=== PATIENT | female | born 1975 | race Caucasian/White ===

== ENCOUNTER 2016-10-25 13:44 | Emergency (ER) | payer BC ==
[~2016-10-25] VITALS: Ht 162.6 cm; Wt 70.0 kg
[~2016-10-25 13:44] MED LIST: ALBUAER3 INH; DIAZ5TAB PO; HYDR-755 PO
[2016-10-25 13:51] VITALS: BP 116/80; PULSE 112; RESP 20; TEMP 99.9; O2SAT 99
[2016-10-25] MEDS ORDERED: SODIUM CHLOR 0.9% 1000 ML INJ 1,000 ML IV SCH (14:48)
--- NOTE | 2016-10-25 14:54 | PD ---
Data Data Last Documented VS Vital Signs Date Time Temp Pulse Resp B/P Pulse Ox O2 Delivery O2 Flow Rate FiO2 10/25/16 18:00 90 17 110/78 99 Room Air 10/25/16 13:51 99.9 Orders Complete Blood Count With Diff (10/25/16 14:19) Comprehensive Metabolic Panel (10/25/16 14:19) Prothrombin Time / Inr (Pt) (10/25/16 14:19) Act Partial Throm Time (Ptt) (10/25/16 14:19) Blood Culture (10/25/16 14:19) C-Reactive Protein (Crp) (10/25/16 14:19) Magnesium (Mg) (10/25/16 14:19) Iv Access Insert/Monitor (10/25/16 14:19) Ct Knee W Iv Contrast (10/25/16 ) Lactic Acid (10/25/16 14:24) Morphine Inj (Morphine Inj) (10/25/16 15:00) Ondansetron Inj (Zofran Inj) (10/25/16 15:00) Sodium Chlor 0.9% 1000 Ml Inj (Ns 1000 M (10/25/16 14:48) Acetaminophen (Tylenol) (10/25/16 15:00) Iohexol 350 Inj (Omnipaque 350 Inj) (10/25/16 16:04) Radiology Film Requests (10/25/16 ) Sodium Chloride 0.9% Flush (Ns Flush) (10/25/16 18:00) Heparin Central Flush (Heparin Central F (10/25/16 18:00) Labs Laboratory Tests Test 10/25/16 10/25/16 14:30 14:35 White Blood Count 9.9 TH/MM3 Red Blood Count 4.27 MIL/MM3 Hemoglobin 12.4 GM/DL Hematocrit 36.8 % Mean Corpuscular Volume 86.2 FL Mean Corpuscular Hemoglobin 29.0 PG Mean Corpuscular Hemoglobin 33.6 % Concent Red Cell Distribution Width 13.2 % Platelet Count 191 TH/MM3 Mean Platelet Volume 7.9 FL Neutrophils (%) (Auto) 85.4 % Lymphocytes (%) (Auto) 7.4 % Monocytes (%) (Auto) 6.8 % Eosinophils (%) (Auto) 0.2 % Basophils (%) (Auto) 0.2 % Neutrophils # (Auto) 8.5 TH/MM3 Lymphocytes # (Auto) 0.7 TH/MM3 Monocytes # (Auto) 0.7 TH/MM3 Eosinophils # (Auto) 0.0 TH/MM3 Basophils # (Auto) 0.0 TH/MM3 CBC Comment DIFF FINAL Differential Comment Prothrombin Time 10.8 SEC Prothromb Time International 1.0 RATIO Ratio Activated Partial 39.8 SEC Thromboplast Time Sodium Level 136 MEQ/L Potassium Level 3.6 MEQ/L Chloride Level 101 MEQ/L Carbon Dioxide Level 27.3 MEQ/L Anion Gap 8 MEQ/L Blood Urea Nitrogen 11 MG/DL Creatinine 0.62 MG/DL Estimat Glomerular Filtration 107 ML/MIN Rate Random Glucose 101 MG/DL Calcium Level 9.6 MG/DL Magnesium Level 2.2 MG/DL Total Bilirubin 0.4 MG/DL Aspartate Amino Transf 12 U/L (AST/SGOT) Alanine Aminotransferase 22 U/L (ALT/SGPT) Alkaline Phosphatase 66 U/L C-Reactive Protein 15.30 MG/DL Total Protein 7.7 GM/DL Albumin 3.9 GM/DL Lactic Acid Level 0.8 mmol/L MDM Supervised Visit with [facility]ASS[facility]: Yes Narrative Course I, Dr. Holman], have reviewed the advance practice practitioner's documentation and am in agreement, met with the patient face to face, made the diagnosis, and the medical decision making was done by me. *My assessment and Findings: This is a 41-year-old female with a history of neutropenia and sepsis secondary to infection of hardware of the right lower extremity since emergency Department with pain and warmth to the right lower extremity. She has a history of osteosarcoma and the last time she had infected was probably 6 months ago when she was on chemotherapy at that time. Patient is not currently on chemotherapy. She relates a history of just completing her oral antibiotics approximately a month ago and this week she's noticed that the temperature of her leg is started to come up. She denies any systemic symptoms denies any abdominal pain chest pain nausea vomiting diarrhea. Physical exam does show some mild warmth to the right lower extremity, CT results were discussed with the patient as well as the covering orthopedist on- call who happens to be a PA. The PA that Scott Tang spoke with suggest that the CT findings cannot be used to rule in or rule out an infection of the hardware limits on clinical suspicion. We have discussed with the patient that our clinical suspicion is that she probably does have abutting infection. The patient relates a history of her physicians recommending that she have surgery to remove the hardware in the past but she did not want to do this. At this time the patient would like to start some by mouth antibiotics and then follow up with her orthopedic surgeon or . I discussed with her that at this point I think this is a reasonable course of action however she needs to follow-up very soon. Mr. Tang is ordering antibiotics for her she is not septic at this time. I have offered to transfer her to or however at this time given that we have orthopedic surgery on staff at our hospital she would likely have to pay for such transfer and she does not want to be admitted to our hospital neither. The last time she was admitted to our hospital she was ultimately transferred and she states that she is still paying off that develop. I discussed the risks of leaving at this point with her including worsening infection and need for further surgery and she is accepted those risks and would rather follow up with her orthopedic surgeon. We stressed again to her that she is to follow-up with her orthopedic surgeon as soon as possible. Scripts Rifampin 300 Mg [id number] Mg PO DAILY 14 Days Ref 0 Prov:Ronal Holman MD 10/25/16 Doxycycline Hyclate 100 Mg [id number] Mg PO BID 14 Days Ref 0 Prov:Ronal Holman MD 10/25/16 Ronal Holman MD October 25, 2016 14:54
[2016-10-25 15:00] LABS: AUTOMATED NEUTROPHIL # 8.5 TH/MM3 (1.8-7.7); BASOPHIL % 0.2 % (0.0-2.0); EOSINOPHIL % 0.2 % (0.0-4.0); HEMATOCRIT 36.8 % (35.0-46.0); HEMO FLAGS DIFF FINAL; LYMPH % 7.4 % (9.0-44.0); LYMPHOCYTE # 0.7 TH/MM3 (1.0-4.8); MEAN CELL VOLUME 86.2 FL (80.0-100.0); MEAN CORPUSCULAR HGB CONC 33.6 % (32.0-36.0); MONO % 6.8 % (0.0-8.0); NEUT % 85.4 % (16.0-70.0); PLATELET COUNT 191 TH/MM3 (150-450); RED BLOOD COUNT 4.27 MIL/MM3 (4.00-5.30); RED CELL DISTRIBUTION WIDTH 13.2 % (11.6-17.2); WHITE BLOOD COUNT 9.9 TH/MM3 (4.0-11.0)
[2016-10-25] MEDS ORDERED: ACETAMINOPHEN 325 MG TAB PO ONE (15:00)
[2016-10-25] MEDS ORDERED: MORPHINE SULFATE 4 MG/ML INJ IV PUSH ONE (15:00)
[2016-10-25] MEDS ORDERED: ONDANSETRON HCL 4 MG/2 ML VIAL IV PUSH ONE (15:00)
[2016-10-25 15:21] LABS: APTT (PATIENT) 39.8 SEC (24.3-30.1); PROTHROMBIN TIME - PATIENT 10.8 SEC (9.8-11.6)
[2016-10-25 15:31] LABS: ANION GAP 8 MEQ/L (5-15); AST (GOT) 12 U/L (15-37); BICARBONATE 27.3 MEQ/L (21.0-32.0); BLOOD UREA NITROGEN 11 MG/DL (7-18); CHLORIDE 101 MEQ/L (98-107); GLOMERULAR FILTRATION RATE 107 ML/MIN (>89); MAGNESIUM 2.2 MG/DL (1.5-2.5); POTASSIUM 3.6 MEQ/L (3.5-5.1); SODIUM (NA) 136 MEQ/L (136-145)
[2016-10-25 15:34] LABS: ALKALINE PHOSPHATASE 66 U/L (45-117); ALT (GPT) 22 U/L (10-53); TOTAL BILIRUBIN ADULT 0.4 MG/DL (0.2-1.0)
[2016-10-25] MEDS ORDERED: IOHEXOL 350 MG/ML 10 ML VIAL (for RAD DIAG) IV ONE (16:04)
--- NOTE | 2016-10-25 16:39 | PD ---
HPI Chief Complaint: Musculoskeletal Complaint Time Seen by Provider: 16:33 Travel History International Travel<30 days: No Contact w/Intl Traveler<30days: No Traveled to known affect area: No History of Present Illness HPI 48-year-old female with a history of osteosarcoma on the right leg and previous surgery on the right leg and oncologist orthopedic doctor in [place] that presents to the ED for evaluation of possible infection to the right knee. Per patient she just finished 6 months of antibiotics about a month ago. She states that since Wednesday she's been having pain and swelling on the medial aspect of the leg. Per patient the redness and the symptoms appear to be similar to her previous infection. Per patient she had surgery to remove the osteosarcoma of the right knee. Patient follows with Dr. Dawson for oncology here. She denies any recent injuries or traumas. No falls. Per patient she feels like she has chills but no fevers. She denies any recent surgeries. Per patient she had this in December and she had to be transferred to [place] for evaluation. Per patient she also follows with infectious disease doctor in [place]. Per patient she has not taken anything for this. Per patient she contacted her doctor who recommended that she comes here because of her history. She does have allergies to NSAIDs. She states that currently her pain is 4 out of 10. Patient always uses a walker to get about. She is able to bend the knee with no issues other than some pain. PFSH Past Medical History Anemia: Yes Asthma: Yes (SEASONAL OR WITH VIRAL INFECTIONS) Anxiety: Yes Cancer: Yes (OSTEOSARCOMA) Cardiovascular Problems: No Chemotherapy: Yes (Osteosarcoma ) Diabetes: No Diminished Hearing: No Endocrine: No Genitourinary: No Hepatitis: No Hiatal Hernia: No Immune Disorder: No Musculoskeletal: Yes (OSTEOSARCOMA IN R FEMUR) Neurologic: No Psychiatric: Yes Reproductive: Yes (CHOMTHERAPY INDUCED MENOPAUSE) Respiratory: Yes (Asthma) Thyroid Disease: No Influenza Vaccination: No ?: Not LMP: 10/16/16 Past Surgical History AICD: No Body Medical Devices: RIGHT FEMUR [place] [employer] Cardiac Surgery: No Ear Surgery: No Endocrine Surgery: No Eye Surgery: No Genitourinary Surgery: No Gynecologic Surgery: No Joint Replacement: Yes (RIGHT KNEE) Oral Surgery: No Pacemaker: No Thoracic Surgery: No Other Surgery: Yes (sinus sx 2014) Social History Alcohol Use: No Tobacco Use: No (quit 12-13 yrs ago) Substance Use: No Allergies-Medications (Allergen,Severity, Reaction): Coded Allergies: Ibuprofen (Verified Allergy, Severe, Anaphylaxis, 10/25/16) Nonsteroidal Anti-Inflammatory Agts (Verified Allergy, Intermediate, Hives , 10/25/16) c/o itching starting at her scalp and ears start to burn Dust (Verified Allergy, Mild, 10/25/16) congestion and nasal drainage Molds and Smuts (Verified Allergy, Mild, 10/25/16) congestion Reported Meds & Prescriptions Reported Meds & Active Scripts Active Diazepam 5 Mg Tab 5 Mg PO DAILY Reported Hydroxyzine HCl 10 Mg Tab 10 Mg PO TID PRN Proair Hfa 8.5 GM Inh (Albuterol Sulfate) 90 Mcg/Act Aer 1 Puff INH Q4H PRN 108 mcg/actuation Review of Systems Except as stated in HPI: all other systems reviewed are Neg Physical Exam Narrative GENERAL: SKIN: Warm and dry. HEAD: Atraumatic. Normocephalic. EYES: Pupils equal and round. No scleral icterus. No injection or drainage. ENT: No nasal bleeding or discharge. Mucous membranes pink and moist. Tongue is midline. No uvula deviation. NECK: Trachea midline. No JVD. CARDIOVASCULAR: Regular rate and rhythm. No murmurs, S3, S4. RESPIRATORY: No accessory muscle use. Clear to auscultation. Breath sounds equal bilaterally. GASTROINTESTINAL: Abdomen soft, non-tender, nondistended. Hepatic and splenic margins not palpable. MUSCULOSKELETAL: Extremities without clubbing, cyanosis, or edema. No obvious deformities. Full range of motion of the upper and lower extremities bilaterally. 2+ pulses bilaterally. Patient has a significant surgical scar to the medial aspect of the right leg. Patient has another one which is smaller about 8 cm on the lateral aspect of the upper aspect of the knee. This is where the erythema appears to be. No blanchable. Warm to the touch. Painful. Appears to be about 10 cm in length. No obvious purulence or mass noted. Full range of motion of the knee. NEUROLOGICAL: Awake and alert. No obvious cranial nerve deficits. Motor grossly within normal limits. Five out of 5 muscle strength in the arms and legs. Normal speech. PSYCHIATRIC: Appropriate mood and affect; insight and judgment normal. Data Data Last Documented VS Vital Signs Date Time Temp Pulse Resp B/P Pulse Ox O2 Delivery O2 Flow Rate FiO2 10/25/16 13:51 99.9 112 20 116/80 99 Room Air Orders Complete Blood Count With Diff (10/25/16 14:19) Comprehensive Metabolic Panel (10/25/16 14:19) Prothrombin Time / Inr (Pt) (10/25/16 14:19) Act Partial Throm Time (Ptt) (10/25/16 14:19) Blood Culture (10/25/16 14:19) C-Reactive Protein (Crp) (10/25/16 14:19) Magnesium (Mg) (10/25/16 14:19) Iv Access Insert/Monitor (10/25/16 14:19) Ct Knee W Iv Contrast (10/25/16 ) Lactic Acid (10/25/16 14:24) Morphine Inj (Morphine Inj) (10/25/16 15:00) Ondansetron Inj (Zofran Inj) (10/25/16 15:00) Sodium Chlor 0.9% 1000 Ml Inj (Ns 1000 M (10/25/16 14:48) Acetaminophen (Tylenol) (10/25/16 15:00) Iohexol 350 Inj (Omnipaque 350 Inj) (10/25/16 16:04) Labs Laboratory Tests Test 10/25/16 10/25/16 14:30 14:35 White Blood Count 9.9 TH/MM3 Red Blood Count 4.27 MIL/MM3 Hemoglobin 12.4 GM/DL Hematocrit 36.8 % Mean Corpuscular Volume 86.2 FL Mean Corpuscular Hemoglobin 29.0 PG Mean Corpuscular Hemoglobin 33.6 % Concent Red Cell Distribution Width 13.2 % Platelet Count 191 TH/MM3 Mean Platelet Volume 7.9 FL Neutrophils (%) (Auto) 85.4 % Lymphocytes (%) (Auto) 7.4 % Monocytes (%) (Auto) 6.8 % Eosinophils (%) (Auto) 0.2 % Basophils (%) (Auto) 0.2 % Neutrophils # (Auto) 8.5 TH/MM3 Lymphocytes # (Auto) 0.7 TH/MM3 Monocytes # (Auto) 0.7 TH/MM3 Eosinophils # (Auto) 0.0 TH/MM3 Basophils # (Auto) 0.0 TH/MM3 CBC Comment DIFF FINAL Differential Comment Prothrombin Time 10.8 SEC Prothromb Time International 1.0 RATIO Ratio Activated Partial 39.8 SEC Thromboplast Time Sodium Level 136 MEQ/L Potassium Level 3.6 MEQ/L Chloride Level 101 MEQ/L Carbon Dioxide Level 27.3 MEQ/L Anion Gap 8 MEQ/L Blood Urea Nitrogen 11 MG/DL Creatinine 0.62 MG/DL Estimat Glomerular Filtration 107 ML/MIN Rate Random Glucose 101 MG/DL Calcium Level 9.6 MG/DL Magnesium Level 2.2 MG/DL Total Bilirubin 0.4 MG/DL Aspartate Amino Transf 12 U/L (AST/SGOT) Alanine Aminotransferase 22 U/L (ALT/SGPT) Alkaline Phosphatase 66 U/L C-Reactive Protein 15.30 MG/DL Total Protein 7.7 GM/DL Albumin 3.9 GM/DL Lactic Acid Level 0.8 mmol/L MDM Medical Decision Making Medical Screen Exam Complete: Yes Emergency Medical Condition: Yes Medical Record Reviewed: Yes Interpretation(s) CBC & BMP Diagram 10/25/16 14:30 CRP is elevated in the 14s Last Impressions Lower Extremity CT 10/25/16 0000 Signed Impressions: Service Date/Time: Tuesday, October 25, 2016 15:52 - CONCLUSION: 1. Slight decrease in size of presumed seroma around the distal shaft of the femoral prosthesis. 2. Resolution of previous fluid collection along medial gastrocnemius. 3. No new fluid collections. No evidence for hardware failure. Man Munson MD Differential Diagnosis Infected wound versus laceration versus cellulitis versus abscess Narrative Course 41-year-old female that presents to the ED for evaluation of possible infected wound. Patient was properly examined and was found to have signs and symptoms consistent appears to be early cellulitis. Patient does have a history of infections in this leg. Patient's surgeon as well as ID Dr. are all in [place]. Case was discussed in my attending Dr Holman who agrees with plan. Labs and imaging ordered. Blood cultures were taken. Labs and imaging showed CRP with no sign of active infection but what appears to be seroma collection improved. Case was discussed in my attending Dr. Kelly who recommends speaking with orthopedic doctor. I spoke with Jesús KLINE who recommended that we start patient on by mouth antibiotics and follow up with her surgeon. This was discussed with the patient at length who prefers to do this. She will prefer not to start antibiotics until she get seen by her surgeon tomorrow to get aspiration to get a culture of the bacteria. Patient was told that his up to her whether she wants to do that her start taking the medications. She understands that partially she has to follow-up with the surgeon tomorrow to get evaluated for this. Case was again discussed with my attending Dr. Holman who was made aware of all findings and recommendations and agrees with this plan. Patient was last put on rifampin as well as doxycycline. I will prescribe patient prescriptions for same. Patient understands reasons to come back. See ED for worsening symptoms. Diagnosis Primary Impression: Cellulitis of right knee Patient Instructions: General Instructions Additional Instructions: Take medication as prescribed. Follow up with your orthopedic surgeon tomorrow. See ED worsening symptoms. Med/Other Pt SpecificInfo: Prescription(s) given Disposition: 01 DISCHARGE HOME Condition: Stable Robert Tang October 25, 2016 16:39
--- NOTE | 2016-10-25 16:56 | RADRPT ---
EXAM DATE/TIME: 10/25/2016 15:52 [facility] COMPARISON: CT KNEE RIGHT W CONTRAST, March 21, 2016, 17:08. INDICATIONS : Right knee pain; history of abscess. IV CONTRAST: 75 cc Omnipaque 350 (iohexol) IV RADIATION DOSE: 41.05 CTDIvol (mGy) MEDICAL HISTORY : Right femur osteosarcoma. SURGICAL HISTORY : None. ENCOUNTER: Initial ACUITY: 1 day PAIN SCALE: 5/10 LOCATION: Right knee TECHNIQUE: Volumetric scanning of the knee was performed. Using automated exposure control and adjustment of th e mA and/or kV according to patient size, radiation dose was kept as low as reasonably achievable to obtain optimal diagnostic quality images. FINDINGS: Comparison is March 2016. There is postoperative resection of the distal femur with a long segment prosthesis and total right knee arthroplasty. There is a simple fluid collection around the distal sh aft of the femoral prosthesis, likely a seroma. This is slightly decreased in size from March 2016. Previous rim-enhancing fluid collection along the superficial margin of the medial gastrocnemius has resolved. No new fluid collections are seen around the knee. No evidence for hardware failure. No acu te fractures identified. Surgical clips in the soft tissues. CONCLUSION: 1. Slight decrease in size of presumed seroma around the distal shaft of the femoral prosthesis. 2. Resolution of previous fluid collection along medial gastrocnemius. 3. No new fluid collections. No evidence for hardware failure. Man Munson MD on October 25, 2016 at 16:46 Board Certified Radiologist. This report was verified electronically.
[2016-10-25] MEDS ORDERED: RIFA300C2 PO (17:21)
[2016-10-25] MEDS ORDERED: DOXY100C PO (17:21)
[2016-10-25 18:00] VITALS: BP 110/78; PULSE 90; RESP 17; O2SAT 99
[2016-10-25] MEDS ORDERED: SODIUM CHLORIDE 0.9% FLUSH 10 ML FLUSH IVF PRN (18:00)
[2016-11-25] MEDS ORDERED: MEDR4PAK PO (16:24)
[2016-12-07] MEDS ORDERED: ALEV220T14 (14:10)
[2016-12-07] MEDS ORDERED: TYLE325T PO (14:13)
[2016-12-07] MEDS ORDERED: LIDO1PAD52 TOPICAL (14:26)
[2016-12-14] MEDS ORDERED: FURO1TAB62 PO (08:58)
== END 2016-10-25 19:12 | disposition home or self-care (01) ==
LOC: NEPE 13:44
DX: L03.115 Cellulitis of right lower limb (principal); M79.604 Pain in right leg; Z85.830 Personal history of malignant neoplasm of bone; Z87.891 Personal history of nicotine dependence; Z79.899 Other long term (current) drug therapy
CPT/HCPCS: 73701; 80053; 83605; 83735; 85025; 85610; 85730; 86140; 87040; 96361; 96374; 99284; J1642; J2405; J7030; Q9967

== ENCOUNTER 2017-04-06 10:07 | Day surgery (SDC) | payer BC ==
[~2017-04-06 10:07] MED LIST changes: -DIAZ5TAB PO; +FERR200T PO
[2017-04-06 10:58] VITALS: BP 115/74; PULSE 106; RESP 16; TEMP 97.7; O2SAT 100
[2017-04-06 11:50] VITALS: BP 101/67; PULSE 89; RESP 20; TEMP 98; O2SAT 99
[2017-04-06] MEDS ORDERED: LIDOCAINE HCL 1% 20 ML VIAL ONE (11:55)
[2017-04-06 12:05] VITALS: BP 108/73; PULSE 98; RESP 20; O2SAT 100
--- NOTE | 2017-04-06 13:39 | RADRPT ---
EXAM DATE/TIME: 04/06/2017 10:57 [facility] COMPARISON: EXTERNAL COMPARISON: CT KNEE RIGHT W CONTRAST, October 25, 2016, 15:52. [facility], US LEG, RIGHT, Mar 29 2017 INDICATIONS : Enlarged right inguinal canal lymph node. MEDICAL HISTORY : Asthma. Anemia. Right distal femur osteosarcoma. Fibroids. Enlarged right inguinal canal lymph node. SURGICAL HISTORY : Right femur osteosarcoma biopsy. Left arthroscopic knee surgery. ENCOUNTER: Initial ACUITY: 1 month PAIN SCORE: 2/10 LOCATION: Right leg. ORGAN: Right lymph node inguinal canal. SPECIMENS: Four core specimen(s) submitted for pathologic evaluation. DEVICE: 16 gauge Temno needle Post procedure scanning reveals no hematoma or other complication. The possibility does exist that the tissue obtained will be non-diagnostic. If the sample is non-kaiser gnostic a repeat biopsy or surgical biopsy may need to be performed. TECHNIQUE: 1. Ultrasound guidance for needle biopsy. 2. Needle biopsy. The risks, benefits and alternatives to the procedure were explained and verbal and written consent w as obtained. The site was prepped in sterile fashion. Full sterile technique was used, including ca p, mask, sterile gloves and gown and a large sterile sheet. Hand hygiene and 2% chlorhexidine and/or betadine/alcohol prep was utilized per protocol for cutaneous antisepsis. The skin and subcutaneous tissues were infiltrated with local anesthetic solution. Sterile gel and sterile probe cover were u tilized for ultrasound guidance. With the patient on the ultrasound table, images were obtained. A needle was advanced into the identified target and the number of specimens as above obtained and chen bmitted for pathologic evaluation. The patient tolerated the procedure well and left the ultrasound suite in stable condition. CONCLUSION: Uncomplicated ultrasound guided needle biopsy. Remigio Alba MD on April 06, 2017 at 13:36 Board Certified Radiologist. This report was verified electronically.
== END 2017-04-06 12:15 | disposition home or self-care (01) ==
LOC: HRAD 10:07 → HRIP 10:08 → HRAD 12:15
PROVIDERS: ATTEND Internal Medicine Hematology & Oncology
DX: R59.0 Localized enlarged lymph nodes (principal); D72.822 Plasmacytosis; J45.909 Unspecified asthma, uncomplicated
CPT/HCPCS: 38505; 76942; 88184; 88185; 88305

== ENCOUNTER 2017-08-08 11:08 | Emergency (ER) | payer BC ==
[~2017-08-08] VITALS: Ht 162.6 cm; Wt 68.0 kg
[2017-08-08 11:11] VITALS: BP 121/79; PULSE 112; RESP 15; TEMP 98.4; O2SAT 100
[2017-08-08] MEDS ORDERED: CYCL5TAB PO (11:34)
[2017-08-08] MEDS ORDERED: TYLE325T PO (11:34)
[2017-08-08] MEDS ORDERED: DIAZ5TAB PO (11:34)
--- NOTE | 2017-08-08 11:42 | PD ---
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 Says she follows Dr. pleitez and the [facility] for her right knee. States that she had an evaluation by male who recommended a had a household of sick contacts and she was knee replacement in May. States that they did not believe that this was an emergent or urgent process and she is due to follow -up with them within the month. States that she has had a culture of the abscess which revealed no growth. She has not been placed on antibiotics for this abscess. Says she is here today because she thinks that she may be more anemic than usual as she is symptomatic. Patient states that she is short of breath with activity but says this is been normal for her. States she is on iron supplements. She denies fevers, chest pain, shortness of breath, abdominal pain. She states that she is chronically anemic and her inflammatory markers ESR and CRP are chronically elevated. Says normally her white blood cell count is not elevated and when it is there is a problem. PFSH Past Medical History Anemia: Yes Asthma: Yes (SEASONAL OR WITH VIRAL INFECTIONS) Anxiety: Yes Cancer: Yes (OSTEOSARCOMA) Cardiovascular Problems: No Chemotherapy: Yes (Osteosarcoma ) Diabetes: No Diminished Hearing: No Endocrine: No Gastrointestinal Disorders: Yes Genitourinary: No Hepatitis: No Hiatal Hernia: No Immune Disorder: No Musculoskeletal: Yes (OSTEOSARCOMA IN R FEMUR) Neurologic: No Psychiatric: Yes Reproductive: Yes (CHOMTHERAPY INDUCED MENOPAUSE) Respiratory: Yes (Asthma) Thyroid Disease: No Tetanus Vaccination: Unknown Influenza Vaccination: No ?: Not LMP: MAY Past Surgical History AICD: No Body Medical Devices: RIGHT FEMUR [place] [employer] Cardiac Surgery: No Ear Surgery: No Endocrine Surgery: No Eye Surgery: No Genitourinary Surgery: No Gynecologic Surgery: No Joint Replacement: Yes (RIGHT KNEE) Oral Surgery: No Pacemaker: No Thoracic Surgery: No Other Surgery: Yes (sinus sx 2014) Social History Alcohol Use: No Tobacco Use: No (quit 12-13 yrs ago) Substance Use: No Allergies-Medications (Allergen,Severity, Reaction): Coded Allergies: diclofenac (Unverified Allergy, Intermediate, Hives, 08/08/17) c/o itching starting at her scalp and ears start to burn etodolac (Unverified Allergy, Intermediate, Hives, 08/08/17) c/o itching starting at her scalp and ears start to burn flurbiprofen (Unverified Allergy, Intermediate, Hives, 08/08/17) c/o itching starting at her scalp and ears start to burn ibuprofen (Unverified Allergy, Intermediate, Hives, 08/08/17) c/o itching starting at her scalp and ears start to burn indomethacin (Unverified Allergy, Intermediate, Hives, 08/08/17) c/o itching starting at her scalp and ears start to burn ketoprofen (Unverified Allergy, Intermediate, Hives, 08/08/17) c/o itching starting at her scalp and ears start to burn ketorolac (Unverified Allergy, Intermediate, Hives, 08/08/17) c/o itching starting at her scalp and ears start to burn naproxen (Unverified Allergy, Intermediate, Hives, 08/08/17) c/o itching starting at her scalp and ears start to burn oxaprozin (Unverified Allergy, Intermediate, Hives, 08/08/17) c/o itching starting at her scalp and ears start to burn house dust (Unverified Allergy, Mild, 08/08/17) congestion and nasal drainage mold (Unverified Allergy, Mild, 08/08/17) congestion Reported Meds & Prescriptions Reported Meds & Active Scripts Active Feosol (Ferrous Sulfate) 200 Mg Tab 200 Mg PO DAILY Reported Tylenol (Acetaminophen) 325 Mg Tab 650 Mg PO Q4H PRN Flexeril (Cyclobenzaprine HCl) 5 Mg Tab 5 Mg PO TID Diazepam 5 Mg Tab 5 Mg PO HS PRN Hydroxyzine HCl 10 Mg Tab 10 Mg PO TID PRN Proair Hfa 8.5 GM Inh (Albuterol Sulfate) 90 Mcg/Act Aer 1 Puff INH Q4H PRN 108 mcg/actuation Review of Systems Except as stated in HPI: all other systems reviewed are Neg Physical Exam Narrative GENERAL: Well-developed, well-nourished, in no apparent distress SKIN: Focused skin assessment warm/dry. HEAD: Atraumatic. Normocephalic. EYES: Pupils equal and round. No scleral icterus. No injection or drainage. ENT: No nasal bleeding or discharge. Mucous membranes pink and moist. NECK: Trachea midline. No JVD. CARDIOVASCULAR: Regular rate and rhythm. No murmur appreciated. RESPIRATORY: No accessory muscle use. Clear to auscultation. Breath sounds equal bilaterally. GASTROINTESTINAL: Abdomen soft, non-tender, nondistended. MUSCULOSKELETAL: No obvious deformities. No clubbing. No cyanosis. Right knee-linear scar on the lateral aspects extending from mid thigh to mid calf. A 3 cm x 2 cm fluctuance, raised lesion is present without central puncta. No surrounding erythema. No lymph angiopathic spread.Pt is able to move the joint but with pain as it is swollen. NEUROLOGICAL: Awake and alert. No obvious cranial nerve deficits. Motor grossly within normal limits. Normal speech. PSYCHIATRIC: Appropriate mood and affect; insight and judgment normal. Data Data Last Documented VS Vital Signs Date Time Temp Pulse Resp B/P (MAP) Pulse Ox O2 Delivery O2 Flow Rate FiO2 08/08/17 11:26 18 Room Air 08/08/17 11:11 98.4 112 121/79 (93) 100 Orders Orders Complete Blood Count With Diff (08/08/17 11:35) Iv Access Insert/Monitor (08/08/17 11:35) Lactic Acid Sepsis Protocol (08/08/17 11:35) Blood Culture (08/08/17 11:35) Act Partial Throm Time (Ptt) (08/08/17 11:39) Prothrombin Time / Inr (Pt) (08/08/17 11:39) Comprehensive Metabolic Panel (08/08/17 11:40) Sodium Chlor 0.9% 1000 Ml Inj (Ns 1000 M (08/08/17 12:30) Ed Discharge Order (08/08/17 12:57) Labs Laboratory Tests Test 08/08/17 12:00 White Blood Count 6.2 TH/MM3 Red Blood Count 4.34 MIL/MM3 Hemoglobin 11.1 GM/DL Hematocrit 33.2 % Mean Corpuscular Volume 76.5 FL Mean Corpuscular Hemoglobin 25.6 PG Mean Corpuscular Hemoglobin Concent 33.5 % Red Cell Distribution Width 16.0 % Platelet Count 352 TH/MM3 Mean Platelet Volume 7.1 FL Neutrophils (%) (Auto) 74.8 % Lymphocytes (%) (Auto) 17.8 % Monocytes (%) (Auto) 5.6 % Eosinophils (%) (Auto) 1.4 % Basophils (%) (Auto) 0.4 % Neutrophils # (Auto) 4.7 TH/MM3 Lymphocytes # (Auto) 1.1 TH/MM3 Monocytes # (Auto) 0.3 TH/MM3 Eosinophils # (Auto) 0.1 TH/MM3 Basophils # (Auto) 0.0 TH/MM3 CBC Comment DIFF FINAL Differential Comment Prothrombin Time 10.5 SEC Prothromb Time International Ratio 1.0 RATIO Activated Partial Thromboplast Time 30.8 SEC Blood Urea Nitrogen 13 MG/DL Creatinine 0.79 MG/DL Random Glucose 96 MG/DL Total Protein 8.4 GM/DL Albumin 3.6 GM/DL Calcium Level 9.5 MG/DL Alkaline Phosphatase 78 U/L Aspartate Amino Transf (AST/SGOT) 11 U/L Alanine Aminotransferase (ALT/SGPT) 12 U/L Total Bilirubin 0.2 MG/DL Sodium Level 138 MEQ/L Potassium Level 3.5 MEQ/L Chloride Level 102 MEQ/L Carbon Dioxide Level 28.9 MEQ/L Anion Gap 7 MEQ/L Estimat Glomerular Filtration Rate 80 ML/MIN Lactic Acid Level 1.0 mmol/L MDM Medical Decision Making Medical Screen Exam Complete: Yes Emergency Medical Condition: Yes Differential Diagnosis right knee abscess, right knee cellulitis, symptomatic anemia, medication noncompliance Narrative Course 42y female with a history of osteosarcoma, right TKA (2014) and 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 Says she follows Dr. pleitez and the [facility] for her right knee. States that she had an evaluation by male who recommended a had a household of sick contacts and she was knee replacement in May. States that they did not believe that this was an emergent or urgent process and she is due to follow -up with them within the month. States that she has had a culture of the abscess which revealed no growth. She has not been placed on antibiotics for this abscess. Says she is here today because she thinks that she may be more anemic than usual as she is symptomatic. Patient states that she is short of breath with activity but says this is been normal for her. States she is on iron supplements. She denies fevers, chest pain, shortness of breath, abdominal pain. She states that she is chronically anemic and her inflammatory markers ESR and CRP are chronically elevated. Says normally her white blood cell count is not elevated and when it is there is a problem. Vital signs demonstrate a mildly tachycardic rate which appears to be chronic. 1 L IV fluid bolus administered for her fatigue and apparent cold sweats. Laboratory Tests Test 08/08/17 12:00 White Blood Count 6.2 TH/MM3 Red Blood Count 4.34 MIL/MM3 Hemoglobin 11.1 GM/DL Hematocrit 33.2 % Mean Corpuscular Volume 76.5 FL Mean Corpuscular Hemoglobin 25.6 PG Mean Corpuscular Hemoglobin Concent 33.5 % Red Cell Distribution Width 16.0 % Platelet Count 352 TH/MM3 Mean Platelet Volume 7.1 FL Neutrophils (%) (Auto) 74.8 % Lymphocytes (%) (Auto) 17.8 % Monocytes (%) (Auto) 5.6 % Eosinophils (%) (Auto) 1.4 % Basophils (%) (Auto) 0.4 % Neutrophils # (Auto) 4.7 TH/MM3 Lymphocytes # (Auto) 1.1 TH/MM3 Monocytes # (Auto) 0.3 TH/MM3 Eosinophils # (Auto) 0.1 TH/MM3 Basophils # (Auto) 0.0 TH/MM3 CBC Comment DIFF FINAL Differential Comment Prothrombin Time 10.5 SEC Prothromb Time International Ratio 1.0 RATIO Activated Partial Thromboplast Time 30.8 SEC Blood Urea Nitrogen 13 MG/DL Creatinine 0.79 MG/DL Random Glucose 96 MG/DL Total Protein 8.4 GM/DL Albumin 3.6 GM/DL Calcium Level 9.5 MG/DL Alkaline Phosphatase 78 U/L Aspartate Amino Transf (AST/SGOT) 11 U/L Alanine Aminotransferase (ALT/SGPT) 12 U/L Total Bilirubin 0.2 MG/DL Sodium Level 138 MEQ/L Potassium Level 3.5 MEQ/L Chloride Level 102 MEQ/L Carbon Dioxide Level 28.9 MEQ/L Anion Gap 7 MEQ/L Estimat Glomerular Filtration Rate 80 ML/MIN Lactic Acid Level 1.0 mmol/L After review the EMR, it appears that patient has been noncompliant with her iron supplements. Patient does follow with Dr. Dawson. Her last visit was June 22, 2017. It appears that she does have a close follow-up of 2 specialists. Based off of history and physical today, patient appears to be stable for follow -up as an outpatient. There is no evidence of sepsis. In addition, the abscess located to the lateral aspect of her knee is chronic and she states that this has been evaluated by her specialist previously. She explained that her physicians did not want to place her on antibiotics as there was no definite culture. Please see Dr. Ward's note as well regarding this patient. She will be discharged and strongly advised to follow-up with her primary care physician as previously discussed. Diagnosis Primary Impression: Pain, joint, knee, right Additional Impression: Abscess Referrals: Primary Care Physician Additional Instructions: Follow-up with primary care physician. Ensure adequate fluid intake and take her iron as previously prescribed. If you develop fever, worsening knee pain or swelling, return to the emergency department. Disposition: 01 DISCHARGE HOME Condition: Stable Janet Bunn Aug 08, 2017 11:42
[2017-08-08 12:21] LABS: AUTOMATED NEUTROPHIL # 4.7 TH/MM3 (1.8-7.7); BASOPHIL % 0.4 % (0.0-2.0); EOSINOPHIL # 0.1 TH/MM3 (0-0.4); EOSINOPHIL % 1.4 % (0.0-4.0); HEMATOCRIT 33.2 % (35.0-46.0); HEMOGLOBIN 11.1 GM/DL (11.6-15.3); LYMPH % 17.8 % (9.0-44.0); LYMPHOCYTE # 1.1 TH/MM3 (1.0-4.8); MEAN CELL VOLUME 76.5 FL (80.0-100.0); MEAN CORPUSCULAR HEMOGLOBIN 25.6 PG (27.0-34.0); MEAN CORPUSCULAR HGB CONC 33.5 % (32.0-36.0); MEAN PLATELET VOLUME 7.1 FL (7.0-11.0); MONO % 5.6 % (0.0-8.0); MONOCYTE # 0.3 TH/MM3 (0-0.9); NEUT % 74.8 % (16.0-70.0); PLATELET COUNT 352 TH/MM3 (150-450); RED BLOOD COUNT 4.34 MIL/MM3 (4.00-5.30); WHITE BLOOD COUNT 6.2 TH/MM3 (4.0-11.0)
[2017-08-08] MEDS ORDERED: SODIUM CHLOR 0.9% 1000 ML INJ 1,000 ML IV ONE (12:30)
[2017-08-08 12:33] LABS: PROTHROMBIN TIME - PATIENT 10.5 SEC (9.8-11.6)
[2017-08-08 12:40] LABS: ALBUMIN 3.6 GM/DL (3.4-5.0); AST (GOT) 11 U/L (15-37); BICARBONATE 28.9 MEQ/L (21.0-32.0); BLOOD UREA NITROGEN 13 MG/DL (7-18); CALCIUM 9.5 MG/DL (8.5-10.1); CHLORIDE 102 MEQ/L (98-107); CREATININE 0.79 MG/DL (0.50-1.00); GLOMERULAR FILTRATION RATE 80 ML/MIN (>89); GLUCOSE,RANDOM 96 MG/DL (74-106); SODIUM (NA) 138 MEQ/L (136-145)
[2017-08-08 12:41] LABS: ALT (GPT) 12 U/L (10-53)
[2017-08-08 12:43] LABS: ALKALINE PHOSPHATASE 78 U/L (45-117); TOTAL BILIRUBIN ADULT 0.2 MG/DL (0.2-1.0); TOTAL PROTEIN 8.4 GM/DL (6.4-8.2)
--- NOTE | 2017-08-08 12:56 | PD ---
Data Data Last Documented VS Vital Signs Date Time Temp Pulse Resp B/P (MAP) Pulse Ox O2 Delivery O2 Flow Rate FiO2 08/08/17 13:47 88 18 121/71 (88) 100 08/08/17 11:26 Room Air 08/08/17 11:11 98.4 Orders Orders Complete Blood Count With Diff (08/08/17 11:35) Iv Access Insert/Monitor (08/08/17 11:35) Lactic Acid Sepsis Protocol (08/08/17 11:35) Blood Culture (08/08/17 11:35) Act Partial Throm Time (Ptt) (08/08/17 11:39) Prothrombin Time / Inr (Pt) (08/08/17 11:39) Comprehensive Metabolic Panel (08/08/17 11:40) Sodium Chlor 0.9% 1000 Ml Inj (Ns 1000 M (08/08/17 12:30) Ed Discharge Order (08/08/17 12:57) Labs Laboratory Tests Test 08/08/17 12:00 White Blood Count 6.2 TH/MM3 Red Blood Count 4.34 MIL/MM3 Hemoglobin 11.1 GM/DL Hematocrit 33.2 % Mean Corpuscular Volume 76.5 FL Mean Corpuscular Hemoglobin 25.6 PG Mean Corpuscular Hemoglobin Concent 33.5 % Red Cell Distribution Width 16.0 % Platelet Count 352 TH/MM3 Mean Platelet Volume 7.1 FL Neutrophils (%) (Auto) 74.8 % Lymphocytes (%) (Auto) 17.8 % Monocytes (%) (Auto) 5.6 % Eosinophils (%) (Auto) 1.4 % Basophils (%) (Auto) 0.4 % Neutrophils # (Auto) 4.7 TH/MM3 Lymphocytes # (Auto) 1.1 TH/MM3 Monocytes # (Auto) 0.3 TH/MM3 Eosinophils # (Auto) 0.1 TH/MM3 Basophils # (Auto) 0.0 TH/MM3 CBC Comment DIFF FINAL Differential Comment Prothrombin Time 10.5 SEC Prothromb Time International Ratio 1.0 RATIO Activated Partial Thromboplast Time 30.8 SEC Blood Urea Nitrogen 13 MG/DL Creatinine 0.79 MG/DL Random Glucose 96 MG/DL Total Protein 8.4 GM/DL Albumin 3.6 GM/DL Calcium Level 9.5 MG/DL Alkaline Phosphatase 78 U/L Aspartate Amino Transf (AST/SGOT) 11 U/L Alanine Aminotransferase (ALT/SGPT) 12 U/L Total Bilirubin 0.2 MG/DL Sodium Level 138 MEQ/L Potassium Level 3.5 MEQ/L Chloride Level 102 MEQ/L Carbon Dioxide Level 28.9 MEQ/L Anion Gap 7 MEQ/L Estimat Glomerular Filtration Rate 80 ML/MIN Lactic Acid Level 1.0 mmol/L MDM Medical Record Reviewed: Yes Supervised Visit with CASSIDY: Yes Narrative Course I, Dr. Ward, have reviewed the advance practice practitioner's documentation and am in agreement, met with the patient face to face, made the diagnosis, and the medical decision making was done by me. *My assessment and Findings: There is a fluid collection in the lower lateral thigh on the right side. Patient follows with orthopedics at the [facility]. The fluid collection does not appear infected and it is chronic in nature. We will not drain the collection here. Condition: Stable Kelvin Ward MD Aug 08, 2017 12:56
[2017-08-08 13:47] VITALS: BP 121/71
== END 2017-08-08 13:50 | disposition home or self-care (01) ==
LOC: NEPC 11:08
DX: M25.561 Pain in right knee (principal); L02.415 Cutaneous abscess of right lower limb; J45.909 Unspecified asthma, uncomplicated; D64.9 Anemia, unspecified; R00.0 Tachycardia, unspecified; Z87.891 Personal history of nicotine dependence
CPT/HCPCS: 80053; 83605; 85025; 85610; 85730; 87040; 96360; 99284; J7030

== ENCOUNTER → 2017-09-03 | Outpatient (CLI) | payer BC ==
[~2017-09-03] MED LIST changes: +CYCL5TAB PO; +DIAZ5TAB PO; +TYLE325T PO
[2017-09-03 14:34] LABS: AUTOMATED NEUTROPHIL # 4.5 TH/MM3 (1.8-7.7); BASOPHIL % 0.3 % (0.0-2.0); EOSINOPHIL # 0.1 TH/MM3 (0-0.4); EOSINOPHIL % 1.2 % (0.0-4.0); HEMATOCRIT 25.2 % (35.0-46.0); HEMOGLOBIN 8.2 GM/DL (11.6-15.3); LYMPH % 17.9 % (9.0-44.0); LYMPHOCYTE # 1.1 TH/MM3 (1.0-4.8); MEAN CELL VOLUME 78.4 FL (80.0-100.0); MEAN CORPUSCULAR HEMOGLOBIN 25.5 PG (27.0-34.0); MEAN CORPUSCULAR HGB CONC 32.6 % (32.0-36.0); MEAN PLATELET VOLUME 7.1 FL (7.0-11.0); MONO % 7.2 % (0.0-8.0); MONOCYTE # 0.4 TH/MM3 (0-0.9); NEUT % 73.4 % (16.0-70.0); PLATELET COUNT 389 TH/MM3 (150-450); RED BLOOD COUNT 3.21 MIL/MM3 (4.00-5.30); RED CELL DISTRIBUTION WIDTH 16.8 % (11.6-17.2); WHITE BLOOD COUNT 6.2 TH/MM3 (4.0-11.0)
[2017-09-03 15:08] LABS: CALCIUM 8.9 MG/DL (8.5-10.1); CREATININE 0.59 MG/DL (0.50-1.00)
== END ==
LOC: CLAB 14:02
PROVIDERS: ATTEND Family Medicine
DX: T84.53XD Infection and inflammatory reaction due to internal right knee prosthesis, subsequent encounter (principal)
CPT/HCPCS: 36415; 80048; 85025